=== PATIENT | male | born 1955 | race Caucasian/White ===

== ENCOUNTER → 2016-11-02 | Outpatient (CLI) | payer MEDICARE ==
[~2016-11-02] MED LIST: ALPR0.254; CYCL10TA45 PO; HYDR-3730 PO; SMV20T PO
--- NOTE | 2016-11-02 15:29 | Diagnostic Imaging Report ---
CLINICAL INDICATION: Patient with memory loss. Patient is blind. No surgery. EXAM: Axial CT scan of the brain performed without IV contrast. COMPARISON: Head CT without IV contrast dated 08/14/2015. FINDINGS: There is no evidence of acute cerebral infarct, intracranial hemorrhage, or gross mass effect. There is no significant change to the diffuse brain parenchymal volume loss with the temporal lobes affected the most. There is normal ventura-white matter distinction. There is no significant midline shift or herniation. There is no evidence of hydrocephalus. Stable asymmetry of the ventricles with prominence of the occipital horn of left lateral ventricle. The basal cisterns are unremarkable. The skull, extracranial soft tissue, and orbits are unremarkable. The paranasal sinuses are unremarkable. IMPRESSION: Stable CT scan of the brain with stable brain parenchymal volume loss with the temporal lobes affected the most. Dictated by: Dictated on workstation # [id number]
== END ==
LOC: RAD 14:52
PROVIDERS: ATTEND Family Medicine
DX: R41.3 Other amnesia (principal); H54.0 Blindness, both eyes
CPT/HCPCS: 70450

== ENCOUNTER 2018-07-20 07:10 | Emergency (ER) | payer MEDICARE ==
[~2018-07-20] VITALS: Ht 167.6 cm; Wt 77.1 kg
[2018-07-20 07:27] LABS: BASOPHILS % (AUTO) 0 % (0-10); EOSINOPHILS % (AUTO) 0 % (0-10); HEMATOCRIT 44 % (40-54); HEMOGLOBIN 14.7 G/DL (13.3-17.7); LYMPHOCYTES # (AUTO) 0.9 X 10^3 (1.0-4.0); LYMPHOCYTES % (AUTO) 14 % (12-44); MEAN CORPUSCULAR HEMOGLOBIN 32 PG (25-34); MEAN CORPUSCULAR HGB CONC 33 G/DL (32-36); MEAN CORPUSCULAR VOLUME 96 FL (80-99); MEAN PLATELET VOLUME 9.7 FL (7.4-10.4); MONOCYTES # (AUTO) 0.5 X 10^3 (0.0-1.0); MONOCYTES % (AUTO) 7 % (0-12); NEUTROPHILS # (AUTO) 5.4 X 10^3 (1.8-7.8); NEUTROPHILS % (AUTO) 79 % (42-75); PLATELET COUNT 207 10^3/uL (130-400); WHITE BLOOD COUNT 6.8 10^3/uL (4.3-11.0)
[2018-07-20 07:47] LABS: ALANINE AMINOTRANSFERASE 21 U/L (0-55); ALBUMIN 4.2 GM/DL (3.2-4.5); ALKALINE PHOSPHATASE 51 U/L (40-136); BILIRUBIN,TOTAL 0.5 MG/DL (0.1-1.0); BUN/CREATININE RATIO 13; CALCIUM 9.4 MG/DL (8.5-10.1); CARBON DIOXIDE 22 MMOL/L (21-32); CHLORIDE 107 MMOL/L (98-107); CREATININE SERUM 0.96 MG/DL (0.60-1.30); GFR ESTIMATED > 60; GLUCOSE 96 MG/DL (70-105); POTASSIUM 3.7 MMOL/L (3.6-5.0); SODIUM 139 MMOL/L (135-145); TOTAL PROTEIN 7.1 GM/DL (6.4-8.2)
[2018-07-20 07:51] LABS: BILIRUBIN,URINE NEGATIVE (NEGATIVE); CLARITY,URINE CLEAR; COLOR,URINE YELLOW; GLUCOSE, URINE (UA) NEGATIVE (NEGATIVE); KETONES,URINE NEGATIVE (NEGATIVE); LEUKOCYTE ESTERASE ,URINE NEGATIVE (NEGATIVE); NITRITE,URINE NEGATIVE (NEGATIVE); PH,URINE 6 (5-9); PROTEIN,URINE NEGATIVE (NEGATIVE); UROBILINOGEN,URINE NORMAL (NORMAL)
[2018-07-20 08:00] LABS: BACTERIA,URINE NEGATIVE /HPF
--- NOTE | 2018-07-20 08:12 | ED General ---
General Chief Complaint: Altered Mental Status Stated Complaint: CONFUSION Nursing Triage Note: PT PRESENTS TO ED VIA EMS FOR CONFUSION. PT WAS FOUND WALKING AROUND A NEIGHBORHOOD AND DIGGING THROUGH TRASH. PT IS UNSURE WHO HE LIVES WITH OR WHERE HIS ADDRESS IS. PT DENIES PAIN OR ANY INJURY. Nursing Sepsis Screen: No Definite Risk Source of Information: Patient Exam Limitations: No Limitations History of Present Illness Date Seen by Provider: Jul 20, 2018 Time Seen by Provider: 07:11 Allergies and Home Medications Allergies Coded Allergies: No Known Drug Allergies (Unverified , 02/29/12) Home Medications Cyclobenzaprine Hcl 10 Mg Tablet, 10 MG PO BID Prescribed by: CHRISTOPHE BURCH on 10/09/14 1303 Hydrocodone/Acetaminophen 1 Each Tablet, 1 EACH PO Q4H Prescribed by: CHRISTOPHE BURCH on 10/09/14 1303 Patient Home Medication List Home Medication List Reviewed: Yes Past Bowwohz-Sgndwi-Wqjtjm Hx Patient Social History Alcohol Use: Rarely Uses Recreational Drug Use: No Smoking Status: Never a Smoker Recent Foreign Travel: No Contact w/Someone Who Travel: No Recent Infectious Disease Expo: No Physical Abuse: No Sexual Abuse: No Mistreated: No Fear: No Immunizations Up To Date Date of Pneumonia Vaccine: Mar 02, 2011 Date of Influenza Vaccine: Feb 24, 2012 Past Medical History Surgeries: Yes (EYE) Respiratory: No Cardiac: No Neurological: No Gastrointestinal: No Musculoskeletal: No Endocrine: No (unk) Cancer: No Psychosocial: No Physical Exam Vital Signs Vital Signs - First Documented 07/20/18 07:27 Temp 98.0 Pulse 81 Resp 20 B/P (MAP) 138/81 (100) Pulse Ox 97 Capillary Refill : Less Than 3 Seconds Height, Weight, BMI Height: 5'6.00" Weight: 170lbs. oz. 77.097374cm; BMI Method:Estimated Progress/Results/Core Measures Suspected Sepsis Recent Fever Within 48 Hours: No Infection Criteria Present: None New/Unexplained Altered Menta: No Sepsis Screen: No Definite Risk SIRS Temperature:98.0 Pulse: 81 Respiratory Rate: 20 Blood Pressure 138 /81 Mean: 100 Results/Orders Lab Results My Orders Vital Signs/I&O Capillary Refill : Less Than 3 Seconds Blood Pressure Mean: 100 Progress Note : Progress Note Workup was unremarkable. Patient's sister was contacted. She presented to the emergency room to pick him up. Patient was dismissed into her care. She indicates she will investigate his home situation and ensure he is safe. Departure Impression Primary Impression: Dementia Qualified Codes: F03.91 - Unspecified dementia with behavioral disturbance Disposition: 01 HOME, SELF-CARE Condition: Stable Departure-Patient Inst. Decision time for Depature: 08:10 Referrals: JESUS CALLE DO (PCP/Family) Primary Care Physician Patient Instructions: Dementia (DC) Add. Discharge Instructions: Follow-up with your primary care provider as needed. Please make provisions for safety and super vision. Return to care in the ER as needed for other problems or concerns. All discharge instructions reviewed with patient and/or family. Voiced understanding. HANNY ZAYAS MD Jul 20, 2018 08:12
[2018-07-20 08:14] VITALS: BP 135/89
== END 2018-07-20 08:14 | disposition home or self-care (01) ==
LOC: EDUNIT# 07:10 → ER 07:11
DX: F03.90 Unspecified dementia, unspecified severity, without behavioral disturbance, psychotic disturbance, mood disturbance, and anxiety (principal)
CPT/HCPCS: 36415; 80053; 81000; 84443; 85025

== ENCOUNTER 2019-01-15 08:38 | Emergency (ER) | payer MEDICARE ==
[~2019-01-15] VITALS: Ht 172 cm; Wt 72.0 kg
--- NOTE | 2019-01-15 08:53 | ED General ---
General Chief Complaint: Altered Mental Status Stated Complaint: AMS Source of Information: Patient Exam Limitations: No Limitations History of Present Illness Date Seen by Provider: Jan 15, 2019 Time Seen by Provider: 08:41 Initial Comments Here by EMS with report of confusion. Patient was found wondering around the neighborhood. No distress. He is clean and well-dressed and denies complaints. Does have history of dementia and blindness and has been seen here before for very similar presentation. He lives in a house with a roommate and is supposed to have alarms on the doors. EMS noted normal vital signs although slightly hypertensive with normal blood sugar. No obvious injuries. Patient knows his name and birthdate that is unsure of other orientation questions. Timing/Duration: 1 Hour Severity: Mild Associated Systoms: Denies Symptoms Allergies and Home Medications Allergies Coded Allergies: No Known Drug Allergies (Unverified , 02/29/12) Home Medications Cyclobenzaprine Hcl 10 Mg Tablet, 10 MG PO BID Prescribed by: CHRISTOPHE BURCH on 10/09/14 1303 Hydrocodone/Acetaminophen 1 Each Tablet, 1 EACH PO Q4H Prescribed by: CHRISTOPHE BURCH on 10/09/14 1303 Patient Home Medication List Home Medication List Reviewed: Yes Review of Systems Review of Systems Constitutional: see HPI; No chills, No fever Respiratory: no symptoms reported Cardiovascular: no symptoms reported Gastrointestinal: no symptoms reported Psychiatric/Neurological: See HPI Past Eenfbyl-Zcwauk-Foqihg Hx Past Med/Social Hx: Reviewed Nursing Past Med/Soc Hx Patient Social History Alcohol Use: Denies Use Recreational Drug Use: No Smoking Status: Unknown if Ever Smoked Immunizations Up To Date Date of Pneumonia Vaccine: Mar 02, 2011 Date of Influenza Vaccine: Feb 24, 2012 Past Medical History Surgeries: Yes (EYE) Respiratory: No Cardiac: No Neurological: Yes Dementia Gastrointestinal: No Musculoskeletal: No Endocrine: No (unk) HEENT: Yes Loss of Vision: Bilateral Cancer: No Psychosocial: No Family Medical History Reviewed Nursing Family Hx No Pertinent Family Hx Physical Exam Vital Signs Vital Signs - First Documented 01/15/19 08:46 Temp 36.4 Pulse 98 Resp 16 B/P (MAP) 134/84 (101) Pulse Ox 98 Capillary Refill : Height, Weight, BMI Height: 5'6.00" Weight: 170lbs. oz. 77.254417nn; BMI Method:Estimated General Appearance: No Apparent Distress, WD/WN HEENT: PERRL/EOMI, Pharynx Normal Neck: Full Range of Motion, Normal Inspection, Non Tender, Supple Respiratory: Lungs Clear, Normal Breath Sounds Cardiovascular: Regular Rate, Rhythm, No Murmur Gastrointestinal: Non Tender, Soft Back: Normal Inspection, No CVA Tenderness, No Vertebral Tenderness Extremity: Normal Range of Motion, Non Tender Neurologic/Psychiatric: Alert, Other (oriented to self but is confused on time, place and situation.) Skin: Normal Color, Warm/Dry; No Ecchymosis, No Rash Progress/Results/Core Measures Suspected Sepsis SIRS Temperature: Pulse: Respiratory Rate: Blood Pressure / Mean: Results/Orders Vital Signs/I&O 01/15/19 08:46 Temp 36.4 Pulse 98 Resp 16 B/P (MAP) 134/84 (101) Pulse Ox 98 Capillary Refill : Progress Note : Progress Note Seen and evaluated. IV established by EMS. Blood sugar normal per EMS. We will try to contact the patient's sister. No indication for further workup at this point as he has no presenting complaints and no obvious injury or illness. Monitor patient. 0933: The patient's sister is here. I did talk with her. She has a plan in place for safety. Currently she is just continue taking home with her. Apparently the roommate works and there are are sometimes at they need additional care. She is working on that and feels like she has a good plan. Discharged home with a sister. SIster verbalize understanding instructions and agreement with plan. Departure Impression Primary Impression: Dementia Qualified Codes: F03.90 - Unspecified dementia without behavioral disturbance Disposition: 01 HOME, SELF-CARE Condition: Improved Departure-Patient Inst. Decision time for Depature: 09:34 Referrals: JESUS CALLE DO (PCP/Family) Primary Care Physician Patient Instructions: Dementia (DC) Add. Discharge Instructions: All discharge instructions reviewed with patient and/or family. Voiced underst anding. Follow up with your doctor for recheck and further evaluation as needed. Return for other concerns as needed. SAMI TAFOYA MD Jan 15, 2019 08:53
--- NOTE | 2019-01-15 09:21 | NUR ---
attempt to contact pt sister at this time. no answer-voicemail left.
--- NOTE | 2019-01-15 09:24 | NUR ---
pt sister presents to ed and reports he brother appears normal for himself and this is typical behavior for him. she requests to take pt home. Dr. tatum informed.
[2019-01-15 09:39] VITALS: BP 126/75
== END 2019-01-15 09:39 | disposition home or self-care (01) ==
LOC: ER 08:38 → EDUNIT# 08:38 → ER 09:39
DX: F03.90 Unspecified dementia, unspecified severity, without behavioral disturbance, psychotic disturbance, mood disturbance, and anxiety (principal)
CPT/HCPCS: 99283

== ENCOUNTER 2021-08-21 16:19 | Emergency (ER) | payer MEDICARE ==
[~2021-08-21] VITALS: Ht 170 cm; Wt 54.0 kg
--- NOTE | 2021-08-21 16:22 | ED Fall/Injury ---
General Stated Complaint: FALL Source: EMS, senior living records (ALL PMH IS FROM [facility] RECORDS) Exam Limitations: other (PT HAS DEMENTIA AND IS BLIND. PT IS AT NORMAL BASE LINE) History of Present Illness Date Seen by Provider: August 21, 2021 Time Seen by Provider: 16:18 Initial Comments PT ARRIVES VIA EMS FROM [facility] PT HAD A WITNESSED FALL AROUND 1530 TODAY PT WAS STANDING UP AND BENDING OVER LOOKING THE FLOOR AND THEN FELL FORWARD ON THIN CARPETED FLOOR NO LOSS OF CONSCIOUSNESS NO BLEEDING OR BRUISING ANYWHERE PT IS AT NORMAL BASELINE--PT WITH DEMENTIA, IS BLIND AND HAS A TREMOR AND FREQUENT FALLS. EMS HAVE REPORTED THAT PT IS ORIENTED TO SELF ONLY, WHICH IS NORMAL. PT IS NOT ON ASPIRIN OR BLOOD THINNERS PT IS UNABLE TO ANSWER ANY QUESTIONS OR FOLLOW ANY COMMANDS ON ARRIVAL, NORMAL BASELINE. SPEECH IS COMPLETELY NON-SENSICAL. PCP: DR. CALLE Allergies and Home Medications Allergies Coded Allergies: No Known Drug Allergies (Unverified , 02/29/12) Patient Home Medication List Home Medication List Reviewed: Yes Alprazolam (Alprazolam) 0.25 Mg Tablet, (Reported) Entered as Reported by: MARIA TERESA ERIC on 10/09/14 0944 Cyclobenzaprine Hcl (Flexeril Tablet) 10 Mg Tablet, 10 MG PO BID Prescribed by: CHRISTOPHE BURCH on 10/09/14 1303 Hydrocodone/Acetaminophen (Lortab 7.5-325 mg Tablet) 1 Each Tablet, 1 EACH PO Q4H Prescribed by: CHRISTOPHE BURCH on 10/09/14 1303 Review of Systems Review of Systems Constitutional: other (PT WITH DEMENTIA AND UNABLE TO ANSWER ANY QUESTIONS AND SPEECH IS NON-SENSICAL) Past Pvbyesi-Lrqapu-Mcfwkf Hx Patient Social History Smoking Status: Unknown if Ever Smoked Substance use?: Unable to obtain Alcohol Use?: Unable to obtain Past Medical History Surgeries: Yes (EYE) Eye Surgery Respiratory: No Cardiac: Yes High Cholesterol Neurological: Yes (TREMORS) Dementia, Seizure Disorder Gastrointestinal: Yes Chronic Constipation Musculoskeletal: Yes (FREQUENT FALLS) HEENT: Yes (BLIND IN BOTH EYES) Loss of Vision: Bilateral Cancer: No Psychosocial: Yes Sleep Difficulties, Anxiety, Depression Family Medical History No Pertinent Family Hx Physical Exam Vital Signs Vital Signs - First Documented 08/21/21 16:47 Pulse 76 Resp 16 B/P (MAP) 123/93 (103) Pulse Ox 98 O2 Delivery Room Air Capillary Refill : Height, Weight, BMI Height: 5'6.00" Weight: 170lbs. oz. 77.199734vr; 24.00 BMI Method:Estimated General Appearance: WD/WN, no apparent distress, other (PT TALKING CONTINUOUSLY, VOICE IS SLIGHTLY TREMULOUS AND COMPLETELY NON-SENSICAL ) HEENT: TMs normal, pharynx normal, other (HORIZONTAL NYSTAGMUS, PUPILS MINIMALLY REACTIVE BUT EQUAL, APPEARS TO HAVE PRIOR CATARACT SURGERY) Neck: non-tender Cardiovascular: regular rate, rhythm, no murmur Respiratory: chest non-tender, normal breath sounds Gastrointestinal: non tender, soft Back: no CVA tenderness, no vertebral tenderness Extremities: non-tender, normal capillary refill, pedal edema (1+ BILATERALLY) Neurologic/Psychiatric: no motor/sensory deficits (MOVES ALL EXTREMITIES, BUT DOES NOT FOLLOW ANY COMMANDS); No facial droop; other (FLAT AFFECT. RESTING TREMOR OF HANDS AND LOWER FACE. SPEECH NON-SENSICAL AND NOT ABLE TO ANSWER ANY QUESTIONS OR FOLLOW ANY COMMANDS. ) Skin: normal color, warm/dry, other (NO EXTERNAL EVIDENCE OF TRAUMA ANYWHERE) Philly Coma Score Best Eye Response: (4) Open Spontaneously Best Verbal Response: (3) Inappropriate Words Progress/Results/Core Measures Results/Orders My Orders Orders - URSZULA CASILLAS DO Ct Head/Cervical Spine Wo (08/21/21 16:21) Chest 1 View, Ap/Pa Only (08/21/21 16:25) Pelvis (08/21/21 16:25) Vital Signs/I&O 08/21/21 16:47 Pulse 76 Resp 16 B/P (MAP) 123/93 (103) Pulse Ox 98 O2 Delivery Room Air Diagnostic Imaging Comments CT HEAD/CERVICAL SPINE--PER RADIOLOGIST REPORT AT 1654 CT HEAD: Comparison with 11/02/2016. There has been further increase in ventricles and sulci with greater enlargement of the left lateral ventricle including the temporal horn. There is no evidence of hemorrhage. No positive mass effect or shift of midline structures is identified. Calvarium is intact and the visualized paranasal sinuses are clear. IMPRESSION: Continued volume loss, increased when compared to study of 11/02/2016. No acute intracranial abnormality is identified. CT CERVICAL SPINE: Cervical spinal curvature and alignment are unremarkable. There is advanced disc space narrowing and endplate spurring throughout the cervical spine with large posterior osteophytes projecting into the spinal canal, most pronounced at the C6-C7 level resulting in moderate to high-grade spinal stenosis and left lateral recess stenosis with multilevel bilateral neural foraminal stenosis. There is, however, no evidence of an acute fracture or subluxation. No paraspinous hematoma is identified. IMPRESSION: Advanced degenerative findings are seen in the cervical spine resulting in neural foraminal and spinal stenoses; however, no acute cervical spine abnormality is detected. CXR--PER RADIOLOGIST REPORT AT 1654 FINDINGS: Heart size and pulmonary vasculature are normal. The lungs are clear without consolidation, pleural effusion, or pneumothorax. The osseous structures are intact. IMPRESSION: No acute radiographic abnormality in the chest. PELVIS XRAYS--PER RADIOLOGIST REPORT AT 1654 FINDINGS: There is no acute fracture, dislocation, or destructive osseous process. The joint spaces are normal. The soft tissues are normal. IMPRESSION: No acute osseous abnormality of the pelvis. Reviewed: Reviewed by Me Departure Impression Primary Impression: WITNESSED FALL FROM STANDING Disposition: 03 XFER SNF Condition: Stable Departure-Patient Inst. Decision time for Depature: 16:55 Referrals: JESUS CALLE DO (PCP/Family) Primary Care Physician Patient Instructions: Preventing Falls in the Older Adult Add. Discharge Instructions: CONTINUE ALL CURRENT MEDICATIONS FALL PRECAUTIONS RETURN TO ER IF CONDITION WORSENS URSZULA CASILLAS DO August 21, 2021 16:22
--- NOTE | 2021-08-21 16:46 | Diagnostic Imaging Report ---
EXAMINATION: Chest 1 view. HISTORY: Chest pain after fall. COMPARISON: 03/02/2012. FINDINGS: Heart size and pulmonary vasculature are normal. The lungs are clear without consolidation, pleural effusion, or pneumothorax. The osseous structures are intact. IMPRESSION: No acute radiographic abnormality in the chest. Dictated by: Dictated on workstation # [id number]
--- NOTE | 2021-08-21 16:48 | Diagnostic Imaging Report ---
EXAMINATION: Pelvis radiograph. EXAM DATE: 08/21/2021. COMPARISON: None available. HISTORY: Pelvic pain after fall. TECHNIQUE: Single views of the pelvis. FINDINGS: There is no acute fracture, dislocation, or destructive osseous process. The joint spaces are normal. The soft tissues are normal. IMPRESSION: No acute osseous abnormality of the pelvis. Dictated by: Dictated on workstation # [id number]
--- NOTE | 2021-08-21 16:52 | Diagnostic Imaging Report ---
PROCEDURE: CT head and CT cervical spine without contrast. TECHNIQUE: Multiple contiguous axial images were obtained through the brain and cervical spine without the use of intravenous contrast. Sagittal and coronal reformations through the cervical spine were then performed. Auto Exposure Controls were utilized during the CT exam to meet ALARA standards for radiation dose reduction. INDICATION: Trauma with head and neck injury. CT HEAD: Comparison with 11/02/2016. There has been further increase in ventricles and sulci with greater enlargement of the left lateral ventricle including the temporal horn. There is no evidence of hemorrhage. No positive mass effect or shift of midline structures is identified. Calvarium is intact and the visualized paranasal sinuses are clear. IMPRESSION: Continued volume loss, increased when compared to study of 11/02/2016. No acute intracranial abnormality is identified. CT CERVICAL SPINE: Cervical spinal curvature and alignment are unremarkable. There is advanced disc space narrowing and endplate spurring throughout the cervical spine with large posterior osteophytes projecting into the spinal canal, most pronounced at the C6-C7 level resulting in moderate to high-grade spinal stenosis and left lateral recess stenosis with multilevel bilateral neural foraminal stenosis. There is, however, no evidence of an acute fracture or subluxation. No paraspinous hematoma is identified. IMPRESSION: Advanced degenerative findings are seen in the cervical spine resulting in neural foraminal and spinal stenoses; however, no acute cervical spine abnormality is detected. Dictated by: Dictated on workstation # [id number]
[2021-08-21 19:00] VITALS: BP 123/93
== END 2021-08-21 19:01 ==
LOC: EDUNIT# 16:19 → ER 16:20
DX: R25.1 Tremor, unspecified (principal); R29.6 Repeated falls; F03.90 Unspecified dementia, unspecified severity, without behavioral disturbance, psychotic disturbance, mood disturbance, and anxiety; H54.7 Unspecified visual loss
CPT/HCPCS: 70450; 71045; 72125; 72170